=== PATIENT | female | born 1990 | race Caucasian/White ===

== ENCOUNTER 2022-06-09 01:54 | Inpatient (IN) | payer BC, SELFPAY ==
[2022-06-09 01:54] VITALS: BP 114/76; PULSE 73; RESP 16; TEMP 36.6; O2SAT 97
[2022-06-09 06:00] VITALS: BP 124/82; PULSE 58; RESP 16; TEMP 36.6; O2SAT 99
[2022-06-09] MEDS: acetaminophen 325 mg Tablet 650 MG PO (08:19)
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
[2022-06-09] MEDS: nicotine 2 mg Gum BUCCAL ×2 (10:22→14:00)
[2022-06-09] MEDS: cephALEXin 500 mg Capsule PO ×2 (10:55→20:31)
[2022-06-09 14:00] VITALS: BP 122/79; PULSE 72; RESP 18; TEMP 37; O2SAT 98
[2022-06-09] MEDS: escitalopram 10 mg Tablet PO (17:21)
[2022-06-09] MEDS: hyDROXYzine 25 mg Capsule 50 MG PO (20:31)
[2022-06-09] MEDS: BuSPIRONE 10 mg Tablet 15 MG PO (20:31)
--- NOTE | 2022-06-09 20:35 | PC.NURSE ---
PRN vistaril for anxiety given as ordered per pt request.
[2022-06-09 20:40] VITALS: BP 131/85; PULSE 68; RESP 18; TEMP 36.8; O2SAT 96
[2022-06-10 06:00] VITALS: BP 129/76; PULSE 72; RESP 16; TEMP 36.4; O2SAT 98
[2022-06-10] MEDS: cephALEXin 500 mg Capsule PO ×2 (08:02→19:57)
[2022-06-10] MEDS: BuSPIRONE 10 mg Tablet 15 MG PO ×3 (08:02→19:57)
[2022-06-10] MEDS: escitalopram 10 mg Tablet PO (08:02)
[2022-06-10] MEDS: nicotine 2 mg Gum BUCCAL ×3 (08:28→16:23)
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
[2022-06-10] MEDS: hyDROXYzine 25 mg Capsule 50 MG PO ×2 (13:15→22:17)
[2022-06-10 14:00] VITALS: BP 119/82; PULSE 64; RESP 17; TEMP 36.6; O2SAT 98
[2022-06-10 20:30] VITALS: BP 136/88; PULSE 62; RESP 18; TEMP 36.4; O2SAT 100
[2022-06-11 06:00] VITALS: BP 125/87; PULSE 61; RESP 18; TEMP 36.3; O2SAT 99
[2022-06-11] MEDS: nicotine 2 mg Gum BUCCAL ×4 (07:49→18:28)
[2022-06-11] MEDS: cephALEXin 500 mg Capsule PO ×2 (09:23→21:17)
[2022-06-11] MEDS: escitalopram 10 mg Tablet PO (09:23)
[2022-06-11] MEDS: BuSPIRONE 10 mg Tablet 15 MG PO ×3 (09:23→21:17)
[2022-06-11] MEDS: hyDROXYzine 25 mg Capsule 50 MG PO (12:40)
[2022-06-11 14:00] VITALS: BP 124/85; PULSE 73; RESP 16; TEMP 36.8; O2SAT 100
[2022-06-11] MEDS: OLANZapine 5 mg ODT PO (16:52)
--- NOTE | 2022-06-11 17:41 | P.NPUPN_ITS ---
Subjective NPU Subjective: Patient presented today reporting that she is feeling a little better. She was somewhat disappointed with the idea of not being discharged but reported that she was thankful for the approach that the treatment team has taken and that she has felt cared for and respected during her stay. We were able to reach out to the family and identify that safety measures had been taken with the gun that was related to her presentation as well as speaking to about securing any additional guns in his possession. We discussed a plan for discharge in the morning. Mental Status Exam MSE Comments: This is an overweight versus obese white female in hospital scrubs, with adequate grooming and eye contact. No abnormal movement except mild psychomotor agitation. Cooperative with exam in no acute distress. Speech was normal rate and volume. Mood described as good, affect is congruent. Thought process, organized. Thought content: patient denies suicidal or homicidal ideation, no delusions reported or noted, and denies any auditory or visual hallucinations. Attention and concentration are intact and memory appeared reliable but none were formally tested. She is alert and oriented three times. I nsight, judgment and impulse control are improving. Vitals/I&O/Wt Last Vital Signs Temp 98.2 F 06/11/22 14:00 Pulse 73 06/11/22 14:00 Resp 16 06/11/22 14:00 BP 124/85 06/11/22 14:00 Pulse Ox 100 06/11/22 14:00 O2 Del Method 06/11/22 14:00 A&P Assessment and plan (1) Major depressive disorder: (2) Suicidal ideation: (3) Cluster B personality disorder in adult: Plan This is a 31 year old white female with a significant history of trauma and genetic loading for mental health, addiction, and lethality issues who presents reporting suicidal ideation and desire for active furtherance endorsing that she has no access to firearms and that she would like to discharge with an openess to start new medications at the time. We discussed the risks, benefits and alternatives of starting, stopping, and changing medications and they understood and agreed to proceed as is documented in this note. 1. Continue current medications except increased Buspar to 15 mg p.o. 3 times daily, started Lexapro 10 mg p.o. every morning, and officially stop Venlafaxine 2. Encourage individual, group and milieu therapy 3. Continue q-15 minute check for safety 4. Recommend sober living treatment at the highest level of care to which the patient is willing to commit. 5. reports eliminating any additional access to guns. And mother confirmed that [place] of record was confiscated by the police and plan for discharge tomorrow. Involuntary Hold Information 96 Hour Hold: 96 Hour Involuntary Admission: Yes 96 Hour Hold Ending Date: 06/14/22 96 Hour Hold Ending Time: 00:01 Attestations NPU Medical Necessity Statement*: Inpatient hospitalization is medically necessary and the clinically appropriate intervention at this time. We will monitor medications and make changes as indicated. Tentative plan for discharge in the morning. Coding Level of Care Code Acute Code for g Fwd Diagnoses Major depressive disorder F32.9 Suicidal ideation R45.851 Cluster B personality disorder in adult F60.9
[2022-06-11 20:56] VITALS: BP 142/90; PULSE 85; RESP 18; TEMP 36.4; O2SAT 98
[2022-06-11] MEDS: trazodone 50 mg Tablet PO (22:15)
[2022-06-12 06:00] VITALS: BP 124/88; PULSE 102; RESP 18; TEMP 36.4; O2SAT 98
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
[2022-06-12] MEDS: cephALEXin 500 mg Capsule PO (09:14)
[2022-06-12] MEDS: escitalopram 10 mg Tablet PO (09:14)
[2022-06-12] MEDS: BuSPIRONE 10 mg Tablet 15 MG PO (09:14)
[2022-06-12 10:13] VITALS: BP 124/88; PULSE 102; RESP 18; TEMP 36.4; O2SAT 98
[2022-06-12] MEDS: nicotine 2 mg Gum BUCCAL (10:22)
--- NOTE | 2022-06-12 12:22 | PC.NURSE ---
discharge instruction discussed an left with patient by Penny Dong, pt stated understanding and compliance. pt left in pov at 1155.
== END 2022-06-12 11:55 | disposition home or self-care (01) | DRG 881 ==
PROVIDERS: Admitting Provider Psychiatry & Neurology Psychiatry; Visit Provider Psychiatry & Neurology Psychiatry
DX: F32.9 Major depressive disorder, single episode, unspecified (principal); R45.851 Suicidal ideations; F60.89 Other specific personality disorders; Z62.810 Personal history of physical and sexual abuse in childhood; Z62.811 Personal history of psychological abuse in childhood; Z63.8 Other specified problems related to primary support group; Z81.8 Family history of other mental and behavioral disorders; Z81.4 Family history of other substance abuse and dependence
CPT/HCPCS: 97150; 97165; 99238